=== PATIENT | female | born 1980 | race Native Hawaiian/Other Pacific Islander ===

== ENCOUNTER 2017-07-19 00:31 | Emergency (ER) | payer MEDICAID ==
[~2017-07-19] VITALS: Ht 167.6 cm; Wt 86.4 kg
[2017-07-19] MEDS ORDERED: CefTRIAXone SODIUM 1 GM/VIAL IM ONE (02:15)
[2017-07-19] MEDS ORDERED: ACETAMINOPHEN/CODEINE 300-30 MG TABLET PO ONE (02:15)
[2017-07-19] MEDS ORDERED: LIDOCAINE HCL/PF 1% 2 ML VIAL IM ONE (02:15)
[2017-07-19 02:30] VITALS: BP 112/77
== END 2017-07-19 02:37 | disposition home or self-care (01) ==
LOC: EMS 00:32
DX: L03.113 Cellulitis of right upper limb (principal); F17.210 Nicotine dependence, cigarettes, uncomplicated
CPT/HCPCS: 96372; 99283; 99406; J0696; J3490

== ENCOUNTER 2018-01-26 08:07 | Emergency (ER) | payer MEDICAID ==
[~2018-01-26] VITALS: Ht 170.2 cm; Wt 90.9 kg
[2018-01-26] MEDS ORDERED: NEOMYCIN/POLYMYXIN B/HYDROCORT 10 ML OTIC SUSPENSION AS ONE (08:45)
[2018-01-26] MEDS ORDERED: KETOROLAC TROMETHAMINE 60 MG/2 ML VIAL IM ONE (09:30)
[2018-01-26 10:30] VITALS: BP 111/66
== END 2018-01-26 10:43 | disposition home or self-care (01) ==
LOC: EMS 08:11
DX: H60.92 Unspecified otitis externa, left ear (principal); L29.9 Pruritus, unspecified; H91.92 Unspecified hearing loss, left ear; R51 Headache; F17.210 Nicotine dependence, cigarettes, uncomplicated
CPT/HCPCS: 96372; 99283; 99406; J1885

== ENCOUNTER 2023-02-12 17:55 | Emergency (ER) | payer MEDICAID, OTHER ==
[~2023-02-12] VITALS: Ht 167.6 cm; Wt 81.8 kg
[2023-02-12 18:28] VITALS: BP 151/96
[2023-02-12] MEDS ORDERED: IBUP-1492 PO (18:31)
== END 2023-02-12 19:25 | disposition home or self-care (01) ==
LOC: EMS 17:56
DX: G56.01 Carpal tunnel syndrome, right upper limb (principal); F17.210 Nicotine dependence, cigarettes, uncomplicated; Z90.49 Acquired absence of other specified parts of digestive tract
CPT/HCPCS: 99283